=== PATIENT | female | born 2000 | race African-American/Black ===

== ENCOUNTER 2018-12-25 12:00 | Emergency (ER) | payer MEDICAID ==
[~2018-12-25] VITALS: Ht 172.7 cm; Wt 117.0 kg
[2018-12-25 12:15] VITALS: BP 113/67
[2018-12-25 14:19] LABS: CLARITY URINE CLEAR (CLEAR); COLOR URINE YELLOW (YELLOW); KETONES URINE TRACE (NEGATIVE); LEUKOCYTE ESTERASE URINE NEGATIVE (NEGATIVE); NITRITE URINE NEGATIVE (NEGATIVE); OCCULT BLOOD URINE 2+ (NEGATIVE); PH URINE 5.5 (4.5-8.0); PROTEIN URINE NEGATIVE (NEGATIVE); SPECIFIC GRAVITY URINE 1.024 (1.005-1.030); UROBILINOGEN URINE 0.2 E.U./dL (0.2-1.0)
== END 2018-12-25 15:30 | disposition home or self-care (01) ==
LOC: ER 12:00
DX: N30.00 Acute cystitis without hematuria (principal); Z88.0 Allergy status to penicillin
CPT/HCPCS: 81025; 99283

== ENCOUNTER 2022-12-16 13:45 | Emergency (ER) | payer MEDICAID ==
[~2022-12-16] VITALS: Ht 175.3 cm; Wt 117.0 kg
[2022-12-16 13:50] VITALS: BP 145/78; PULSE 90; RESP 20; TEMP 98; O2SAT 99
[2022-12-16] MEDS ORDERED: IBUPROFEN 600MG TABLET PO ONE (17:30)
== END 2022-12-16 20:24 | disposition left against medical advice (07) ==
LOC: ER 13:45
DX: R39.11 Hesitancy of micturition (principal)
CPT/HCPCS: 81025; 99282